=== PATIENT | male | born 1970 | race Caucasian/White ===

== ENCOUNTER 2018-05-12 11:09 | Outpatient (REF) | payer BC, SELFPAY ==
[2018-05-12 21:07] LABS: ALT 42 U/L (12-78); AST 26 U/L (15-37); Alkaline Phosphatase 82 U/L (46-116); Anion Gap 8.7 mmol/L (3-11); BUN 14 mg/dL (7-18); Bilirubin, Total 0.3 mg/dL (0.2-1.0); CO2 28.3 mmol/L (21.0-32.0); CREATININE 0.92 mg/dL (0.70-1.30); Calcium 9.6 mg/dL (8.5-10.1); Chloride 102 mmol/L (98-107); Cholesterol 271 mg/dL (50-200); Glucose 98 mg/dL (70-100); HDL Cholesterol 36 mg/dL (40-60); LDL CHOLESTEROL 139 mg/dL (<100); Potassium 4.3 mmol/L (3.5-5.1); Sodium 139 mmol/L (136-145); Total Protein 7.2 g/dL (6.4-8.2); Triglyceride 486 mg/dL (30-150)
[2018-05-12 21:35] LABS: Hemoglobin A1C 5.6 % (4.5-6.2)
== END 2018-05-12 11:29 ==
LOC: NCHCN 11:09
PROVIDERS: PCP Family Medicine; Visit Provider Nurse Practitioner Family
DX: E78.5 Hyperlipidemia, unspecified (principal); I10 Essential (primary) hypertension; Z13.1 Encounter for screening for diabetes mellitus
CPT/HCPCS: 80053; 80061; 83721; 83036

== ENCOUNTER 2019-01-05 10:34 | Outpatient (REF) | payer BC, SELFPAY ==
[2019-01-05 21:25] LABS: Abs Immature Grans 0.01 k/cumm (0.0-0.09); Absolute Basophil Count 0.02 k/cumm (0.0-0.2); Absolute Lymphocyte Count 2.07 k/cumm (1.2-3.4); Absolute Monocyte Count 0.67 k/cumm (0.11-0.7); Absolute Neutrophil Count 3.75 k/cumm (1.2-6.7); Basophils % 0.3; Eosinophils % 1.5; HCT 43.7 % (40.0-50.0); HGB 14.4 g/dL (13.5-17.5); Immature Grans % 0.2; Lymphocytes % 31.3; Mean Corpuscular Volume 94.2 fL (80-95); Mean Platelet Volume 10.2 fL (8.0-11.0); Monocytes % 10.1; Neutrophils % 56.6; Platelet Count 328 x1000/uL (130-400); RBC 4.64 m/cumm (4.50-6.00); RBC Distribution Width 13.5 % (11.8-14.1); White Blood Cell Count 6.62 k/cumm (4.4-10.8)
[2019-01-05 22:20] LABS: TSH (W/Ref FT4) 3.67 uIU/mL (0.358-3.74); Vitamin B12 859 pg/mL (193-986)
[2019-01-06 08:05] LABS: Vitamin D 25 Total 43.8 ng/ml (30-100)
[2019-01-10 11:26] LABS: Testosterone, Free 7.28 ng/dL (4.26-16.4); Testosterone, Total 383 ng/dL (240-950)
== END 2019-01-05 10:54 ==
LOC: NCHCN 10:34
PROVIDERS: PCP Family Medicine; Visit Provider Nurse Practitioner Family
DX: F51.05 Insomnia due to other mental disorder (principal); F43.23 Adjustment disorder with mixed anxiety and depressed mood; F43.10 Post-traumatic stress disorder, unspecified
CPT/HCPCS: 82306; 84402; 84403; 82607; 84443; 85025

== ENCOUNTER 2019-06-06 22:19 | Outpatient (REF) | payer BC, SELFPAY ==
[2019-06-06 22:44] LABS: Anion Gap 9.9 mmol/L (3-11); BUN 6 mg/dL (7-18); CO2 26.1 mmol/L (21.0-32.0); CREATININE 0.96 mg/dL (0.70-1.30); Calcium 9.1 mg/dL (8.5-10.1); Chloride 105 mmol/L (98-107); Glucose 76 mg/dL (74-106); Potassium 4.3 mmol/L (3.5-5.1); Sodium 141 mmol/L (136-145)
== END 2019-06-06 22:39 ==
LOC: NCHCN 22:19
PROVIDERS: PCP Family Medicine; Visit Provider Registered Nurse
DX: I10 Essential (primary) hypertension (principal)
CPT/HCPCS: 80048

== ENCOUNTER 2019-09-27 16:55 | Outpatient (REF) | payer BC, SELFPAY ==
[2019-09-27 20:40] LABS: Anion Gap 9.9 mmol/L (3-11); BUN 8 mg/dL (7-18); CO2 28.1 mmol/L (21.0-32.0); CREATININE 1.03 mg/dL (0.70-1.30); Calcium 8.7 mg/dL (8.5-10.1); Chloride 101 mmol/L (98-107); Glucose 120 mg/dL (74-106); Potassium 4.4 mmol/L (3.5-5.1); Sodium 139 mmol/L (136-145)
== END 2019-09-27 17:15 ==
LOC: NCHCN 16:55
PROVIDERS: PCP Family Medicine; Visit Provider Registered Nurse
DX: I10 Essential (primary) hypertension (principal)
CPT/HCPCS: 80048

== ENCOUNTER 2021-01-02 13:10 | Outpatient (REF) | payer BC, SELFPAY ==
[2021-01-03 10:35] LABS: COVID-19 RT-PCR UVMMC Result Negative (Negative)
== END 2021-01-02 13:11 | disposition home or self-care (01) ==
LOC: NCHCN 13:10
PROVIDERS: PCP Family Medicine; Visit Provider Registered Nurse
DX: Z20.822 Contact with and (suspected) exposure to COVID-19 (principal); J06.9 Acute upper respiratory infection, unspecified
CPT/HCPCS: U0003

== ENCOUNTER 2022-04-16 17:27 | Outpatient (REF) | payer BC, SELFPAY ==
[2022-04-16 14:54] LABS: HCT 38.3 % (40.0-50.0); HGB 13.4 g/dL (13.5-17.5); MCH 30.9 pg (27.0-33.0); MCV 88 fL (80-95); MPV 10.2 fL (8.0-11.0); Platelet Count 289 10^3/uL (130-400); RBC 4.34 10^6/uL (4.36-5.78); RDW-SD 41.9 fL; WBC 8.66 10^3/uL (4.4-10.8)
[2022-04-16 15:53] LABS: ALT 62 U/L (16-63); AST 33 U/L (15-37); Albumin 3.9 g/dL (3.4-5.0); Alkaline Phosphatase 74 U/L (46-116); Anion Gap 7.7 mmol/L (3-11); BUN 6 mg/dL (7-18); Bilirubin, Total 0.3 mg/dL (0.2-1.0); CO2 26.3 mmol/L (21.0-32.0); Calcium 8.8 mg/dL (8.5-10.1); Chloride 105 mmol/L (98-107); Cholesterol 236 mg/dL (<200); Glucose 118 mg/dL (74-106); HDL Cholesterol 33 mg/dL (40-60); Potassium 3.7 mmol/L (3.5-5.1); Sodium 139 mmol/L (136-145); TSH (W/Ref FT4) 3.72 uIU/mL (0.36-3.74); Triglyceride 567 mg/dL (<150)
[2022-04-16 16:04] LABS: LDL CHOLESTEROL 117 mg/dL (<100)
== END 2022-04-16 17:28 | disposition home or self-care (01) ==
LOC: NCHCN 17:27
PROVIDERS: Visit Provider Registered Nurse
DX: I10 Essential (primary) hypertension (principal); E78.5 Hyperlipidemia, unspecified; R53.83 Other fatigue; Z00.00 Encounter for general adult medical examination without abnormal findings
CPT/HCPCS: 80053; 80061; 83721; 85027; 84443

== ENCOUNTER 2023-04-29 18:43 | Outpatient (REF) | payer BC, SELFPAY ==
[2023-04-29 15:17] LABS: HCT 41.4 % (40.0-50.0); MCH 30.3 pg (27.0-33.0); MCHC 33.8 % (32.0-36.0); MCV 90 fL (80-95); MPV 10.3 fL (8.0-11.0); Platelet Count 328 10^3/uL (130-400); RBC 4.62 10^6/uL (4.36-5.78); RDW 13.1 % (11.8-14.1); RDW-SD 43.3 fL; WBC 9.06 10^3/uL (4.4-10.8)
[2023-04-29 15:33] LABS: ALT 53 U/L (16-63); AST 28 U/L (15-37); Albumin 3.6 g/dL (3.4-5.0); Alkaline Phosphatase 80 U/L (46-116); Anion Gap 12.3 mmol/L (3-11); BUN 5 mg/dL (7-18); Bilirubin, Total 0.4 mg/dL (0.2-1.0); CO2 21.7 mmol/L (21.0-32.0); Calcium 9.1 mg/dL (8.5-10.1); Calculated LDL 184 mg/dL (<100); Chloride 105 mmol/L (98-107); Cholesterol 259 mg/dL (<200); Estimated GFR 89.44 (mL/min/1.73m2); Glucose 160 mg/dL (74-106); HDL Cholesterol 46 mg/dL (40-60); Potassium 3.5 mmol/L (3.5-5.1); Sodium 139 mmol/L (136-145); Total Protein 7.4 g/dL (6.4-8.2); Triglyceride 149 mg/dL (<150)
[2023-04-29 15:36] LABS: Hemoglobin A1C 5.8 % (<5.7)
[2023-05-10 13:42] LABS: Testosterone, Free 8.61 ng/dL (4.06-15.6); Testosterone, Total 229 ng/dL (240-950)
== END 2023-04-29 18:44 | disposition home or self-care (01) ==
LOC: NCHCN 18:43
PROVIDERS: Visit Provider Family Medicine
DX: Z00.00 Encounter for general adult medical examination without abnormal findings (principal); R53.83 Other fatigue; I10 Essential (primary) hypertension; E78.5 Hyperlipidemia, unspecified; R73.09 Other abnormal glucose
CPT/HCPCS: 80053; 80061; 84402; 84403; 85027; 83036

== ENCOUNTER 2023-09-23 15:27 | Outpatient (CLI) | payer BC, SELFPAY ==
[2023-09-23 22:51] LABS: PSA, Diagnostic 0.4 ng/mL (<=3.5)
== END 2023-09-23 15:28 | disposition home or self-care (01) ==
LOC: LBO 15:29
PROVIDERS: Visit Provider Urology
DX: R33.9 Retention of urine, unspecified (principal); R53.83 Other fatigue; E29.1 Testicular hypofunction
CPT/HCPCS: 36415; 84153

== ENCOUNTER 2024-02-15 09:23 | Day surgery (SDC) | payer BC, SELFPAY ==
--- NOTE | 2024-02-14 14:24 | W.PM.DSUDISC ---
Date of service: 02/15/24 Time of Service: 13:06 Discharge Plan Disposition Patient Disposition: Home Condition: Good Discharge Details Reason For Visit: Screening colonoscopy Attending Provider: Danish Mendoza Primary Care Provider: Savannah Haney Home Meds and New Rx's Prescriptions: Continued magnesium 250 mg tablet 250 mg PO DAILY zinc sulfate [Orazinc] 50 mg zinc (220 mg) capsule 50 mg PO DAILY pantoprazole [Protonix] 40 mg tablet,delayed release (DR/EC) 40 mg PO DAILY Qty: 90 5RF testosterone cypionate [Depo-Testosterone] 200 mg/mL oil 100 mg IM .q1w Qty: 10 3RF (DME) BD SafetyGlide Syringe 3 mL 23 x 1 syringe See Rx Instructions .Route Qty: 10 12RF Rx Instructions: As directed multivitamin [Daily Multi-Vitamin] 1 EACH tablet 1 ea PO DAILY aspirin [Aspir-81] 81 MG tablet,delayed release (DR/EC) 81 mg PO DAILY acetaminophen 500 mg capsule 500 mg PO TID PRN clotrimazole [Antifungal (clotrimazole)] 1 % cream 1 applic topical BID cyclobenzaprine 10 mg tablet 10 mg PO HS ketoconazole 2 % cream 1 applic topical DAILY rosuvastatin 40 mg tablet 40 mg PO DAILY fluoride (sodium) [SF 5000 Plus] 1.1 % cream 1 applic dental DAILY trazodone 150 mg tablet 150 mg PO DAILY lisinopril 10 mg tablet 20 mg PO DAILY fluticasone propionate [Flonase Allergy Relief] 50 mcg/actuation spray,suspension 1 spray intranasal BID PRN Rx Instructions: administer into each nostril (DME) needle (disp) 18 G [BD Regular [place]vel [place]] 18 gauge x 1 needle See Rx Instructions .Route Qty: 10 12RF Rx Instructions: As directed ibuprofen 800 mg tablet 800 mg PO Q8H oxycodone 5 mg capsule 5 mg PO Q8H PRN Discontinued polyethylene glycol 3350 17 gram/dose powder 238 g PO ONCE Qty: 238 0RF Rx Instructions: take per colonoscopy instructions bisacodyl [Dulcolax (bisacodyl)] 5 mg tablet,delayed release (DR/EC) 5 mg PO ONCE Qty: 4 0RF Rx Instructions: take per colonoscopy instructions Discharge Instructions Instructions: Colon polyps, Diverticulosis Additional Instructions: Jose Luis we were able to complete the procedure today without any difficulty. Everything looked normal on your upper endoscopy. Maybe there was just a little bit of inflammation at the bottom part of your stomach, that could fit with some of the symptoms. To be safe, like we talked about beforehand, I did do multiple biopsies from your duodenum, stomach, and esophagus. It will take a week or so to get the results of the biopsies, and we will certainly let you know at that point, if there is any other treatments that we need to perform. It is also quite possible that you just have some gastritis, that is subclinical. In other words, inflammation from your stomach basically like heartburn that is not evident to the naked eye. Will give the Protonix a little more time, and see if that helps with any of the symptoms. Your colonoscopy also went very smoothly. I did find 2 polyps, which I removed today. These will both be sent off for testing, and once we know the nature of those polyps, we can offer a better recommendation regarding the timing of your next colonoscopy. Incidentally, you also have a little bit of diverticulosis. Diverticula are little weak spots in the wall of the colon. They typically accumulate as we get older. The older teaching was to avoid things like seeds and nuts as that may cause a significant amount of pain, or may be inflammation of the diverticula. During those episodes, we call it diverticulitis, and is usually treated with antibiotics. Hopefully, years will never bother you. I did attach a little bit of information here about diverticulosis, as well as colorectal polyps. If you have any questions, please do not hesitate to call or ask at any point. Otherwise we will be in touch once we have all the biopsy results. 1. If tolerated, consume a soft, low fiber diet for 1-2 days. 2[address] Do not drive, drink alcohol, operate machinery, make critical decisions, or do activities that require coordination or balance for 24 hours. 3. Because air was put into your colon during the procedure, expelling air from your rectum (passing gas or farting) is normal. 4. You may not have a bowel movement for 1-3 days because of the colonoscopy prep. This is normal. 5. You may experience a sore throat for 24 to 48 hours. You may use throat lozenges or gargle with warm salt water to relieve the discomfort. 6. Because air was put into your stomach during the procedure, you may experience some belching. 7. Go directly to the emergency room if you notice any of the following: Develop chills (warm to touch), or if you have a thermometer and your temperature is above 101 Difficulty breathing or difficultly swallowing Persistent vomiting Severe abdominal pain, other than gas cramps Severe chest pain Black, tarry stools Any bleeding ? exceeding one tablespoon 8. Call your physician if the site where your intravenous was started becomes red, swollen, painful, and warm to touch. 9. Your physician has reviewed your pre-procedure medications. Please continue to take those medications as previously ordered. You will be given specific information/education regarding any changes to your medications before leaving. Stand Alone Forms: Anesthesia Discharge InstAntonella Del Rosario (DSU) Activity:: Activity as Tolerated Diet:: As Tolerated Discharge Orders Discharge Orders: Discharge Order (Routine); Ordered 02/14/24 Ordered By: Danish Mendoza DS: Diagnosis Discharge Diagnosis (1) Encounter for screening colonoscopy: Status: Acute Asessment and Plan: Grossly negative EGD, 2 polyps noted on colonoscopy; follow-up on polypectomy results
--- NOTE | 2024-02-14 14:25 | W.COLOREPORT ---
Date of service: 02/15/24 Time of Service: 13:09 Colonoscopy Report Date of procedure: 02/15/24 Pre-op diagnosis general: Gastritis and screening colonoscopy Post-op diagnosis procedure note: other (Normal-appearing EGD; colon diverticulosis, colon polyps) Procedure: EGD with biopsies and colonoscopy with polypectomy Surgeon: Danish Mendoza Anesthesia Type: General:No Airway Estimated blood loss (mL): 10 Pathology: other (Random biopsies of the duodenum, greater curvature, GE junction, esophagus; 0.25 cm colon polyp at 70 cm, 0.25 cm colon polyp at 35 cm) Complications: None Disposition: same day Indications: Jose Luis is a 53-year-old male who needs his first screening colonoscopy Prep: Miralax/Dulcolax Procedure Start Time: 12:29 Procedure End Time: 12:56 Retraction Time: 10 Findings: Normal-appearing EGD; sigmoid diverticulosis, colon polyp at 70 cm, colon polyp at 35 cm Procedure Description: After the initiation of anesthesia, and with the assistance of a bite block, I advanced a standard gastroscope through the mouth past the hypopharynx and into the esophagus.? Under the direct vision of the scope, I advanced down the esophagus towards the stomach.? The upper, mid, and lower esophagus were all normal-appearing. The Z-line was totally regular, and the GE junction measured 38 cm from the incisors. I advanced into the stomach and insufflated into the rugae were obliterated. I performed retroflexion. I did not see any signs of any hiatal hernias. Grossly, the stomach lining appeared normal. I did not see any signs of active ulceration. I advanced down around the incisura angularis. Maybe there was just a tiny bit of erythema of the gastric antrum, but largely it appeared normal. I advanced through the pylorus into the duodenum. The villi of the duodenum appeared normal and healthy. I did perform some cold forceps biopsies within the duodenum to rule out celiac disease, although I think this is clinically unlikely. I brought the camera back into the stomach and perform some random biopsies along the greater curvature to rule out Helicobacter pylori. All of these biopsies were done with cold forceps with minimal bleeding. I brought the camera back up to the GE junction. This was examined once again with narrowband imaging. It appeared normal. I did perform some biopsies of the GE junction as well as the distal esophagus to rule out esophagitis or significant reflux as a source of the symptoms. The stomach was then emptied, and the camera was brought back out along the length of the esophagus again. Similar to the first evaluation, no other abnormalities were appreciated. We then moved down into the left lateral decubitus position. Great care was taken to pad and support him appropriately. I began by performing an external anorectal exam.? Perineum and skin were normal, as was the anal verge.? There was no evidence of external hemorrhoids.? Next, I performed a digital rectal exam.? I did not appreciate any abnormal findings.? Next, I advanced a colonoscope into the rectal vault.? I performed retroflexion.? This appeared normal.? Using insufflation, I then advanced the colonoscope beyond the rectal folds and into the sigmoid colon before advancing towards the cecum.? There was some sigmoid diverticulosis.? The scope was noted to be in the cecum by identification of the ileocecal valve and appendiceal orifice.? I then began withdrawing the colonoscope using repeated irrigation as necessary for full evaluation of the colonic mucosa. Around 70 cm from the anal verge I identified a 0.25 cm polyp. ?It appeared flat in character. ?I was able to remove this with a cold forcep polypectomy. ?I examined the site, and there was minimal bleeding. ?Once this was completed, I continued to withdraw the scope and examine the remainder of the colonic mucosa. I found another polyp around 35 cm from the anus. This was also about 0.25 cm. It was slightly more pedunculated. This was removed with cold forceps as well. ?Once the scope was withdrawn to the level of the rectum, great care was taken to examine portions of the rectal folds.? Finally, the scope was withdrawn and the patient was brought to the same-day surgery recovery unit as the anesthetic wore off. ?The findings and instructions were shared with the patient prior to discharge. [place] Bowel Prep [place] Bowel Prep Right Colon: 3 Left Colon: 3 Transverse Colon: 3 Total Score: 9
[2024-02-15 09:41] VITALS: BP 133/87; PULSE 82; RESP 20; TEMP 36.5; O2SAT 95
[2024-02-15] MEDS: Lactated Ringers 1,000 ML 80 ML IV (10:08)
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
[2024-02-15 10:35] VITALS: BMI 36.7
--- NOTE | 2024-02-15 12:31 | STOM_PTH ---
PATIENT: Carlos Enrique Romero LOC: [facility] U#:[id number] AGE/SX: 53/M ROOM: RE02/15/[address]: Danish Mendoza MD : [id number] BED: DIS: 02/15/2024 SPEC #: [id number] RECD: 02/15/24 18:35 STATUS: NOEL RE #: [id number] DIANELYS: 02/15/24 12:[address]: Danish Mendoza DEPT: Surgical Specimen RECD BY: Jess Zelaya ENTERED: 02/15/24 18:37 SP TYPE: STOMACH OTHR DR: Savannah Haney Tissues: 1 - BIOPSY BOWEL 2 - STOMACH BIOPSY 3 - ESOPHAGUS BIOPSY 4 - ESOPHAGUS BIOPSY 5 - BIOPSY BOWEL 6 - BIOPSY BOWEL Procedures: SPECIAL STAIN 2 GROSS AND MICRO LEVEL 4 SPECIAL STAIN 1 Comments: [id number]
[2024-02-15 13:02] VITALS: BP 115/80; PULSE 77; RESP 16; TEMP 36.2; O2SAT 93
--- NOTE | 2024-02-15 13:25 | W.ANESPOSTOP ---
Postoperative Evaluation Date, Time and Location Date Performed: 02/15/24 Time Performed: 13:25 Patient Location: Day Surgery Unit Vital Signs Most Recent Imported Vital Signs: Most Recent Vital Signs Temp Pulse Resp BP Pulse Ox 36.2 C L 77 16 115/80 93 02/15/24 13:02 02/15/24 13:02 02/15/24 13:02 02/15/24 13:02 02/15/24 13:02 Pain Score Most Recent Pain Score: Most Recent Pain Score Pain Level 0 02/15/24 13:02 Assessment Mental Status: Awake (Alert & Oriented to Patient Baseline) Airway and Respiratory Function: Patent airway with normal (patient baseline) respiratory exam Cardiovascular Function: Hemodynamically Stable Hydration Status: Adequately Hydrated Nausea & Vomiting: No Nausea or Vomiting Pain: Pt. Denies Any Pain Peripheral Nerve Block: Patient did not receive a nerve block
[2024-02-15 13:29] VITALS: BP 123/85; PULSE 81; RESP 16; TEMP 36.2; O2SAT 96
== END 2024-02-15 13:50 | disposition home or self-care (01) ==
LOC: SUR 09:23
PROVIDERS: PCP Family Medicine; Visit Provider Surgery
PROC: (CPT 45380; principal; 2024-02-15 11:15)
DX: Z12.11 Encounter for screening for malignant neoplasm of colon (principal); D12.5 Benign neoplasm of sigmoid colon; K57.30 Diverticulosis of large intestine without perforation or abscess without bleeding; K29.70 Gastritis, unspecified, without bleeding; K22.89 Other specified disease of esophagus; D12.4 Benign neoplasm of descending colon
CPT/HCPCS: 45380; 43239; 88305; 88312; 88313; J2001; J2704